=== PATIENT | female | born 1935 ===

== ENCOUNTER → 2024-08-18 | Outpatient (CLI) | payer MEDICARE, MEDICAID ==
--- NOTE | 2024-09-03 14:58 | DVHSR ---
APPROVED REPORT EXAM: Two-dimensional and M-mode echocardiogram with Doppler and color Doppler. DIMENSIONS LVDd3.7 (3.8-5.7cm)LA (2D)3.1 (1.9-4.0cm)Aortic Root3.3 (2.0-3.7cm) LVDs2.7 (2.5-4.0cm)LA (MM) (1.9-4.0cm)Aortic Cusp Exc1.2 (1.5-2.0cm) EF (%) 55.0 (55-70%)Rt. Atrium (1.9-4.0cm)Asc. Aorta cm IVSd1.2 (0.7-1.1cm)RV (D) (1.8-2.4cm) PWd1.2 (0.7-1.1cm) Mitral Valve MitralMitral Stenosis E wave0.80m/sMV Mean GR.3mmHg A wave1.33m/sMV Peak GR.9mmHg E/A ratio0.62D MVAcm2 DECEL [id number] 1/2 Mifh59dt IVRTmsDop MVA3.14cm2 Aortic Valve Aortic ValveAortic Stenosis V10.75m/Yudi Mean GR.3mmHg V21.26m/Yudi Peak GR.6mmHg LVOT Diameter1.7 (1.8-2.4cm)Doppler AVA1.35cm2 2D AVA1.37cm2 Pulmonic Valve V20.93m/s LEFT VENTRICLE The left ventricle is normal size. The left ventricle is normal in structure and function. The Ejection Fraction is within normal limits. RIGHT VENTRICLE The right ventricle is normal size. ATRIA The left atrial size is normal. The right atrium size is normal. The interatrial septum is intact with no evidence for an atrial septal defect. MITRAL VALVE The mitral valve is normal in structure. Mitral annular calcification is mild to moderate. Mitral regurgitation is trace to mild. PULMONIC VALVE The pulmonic valve is not well visualized. There is trace to mild pulmonic valvular regurgitation. TRICUSPID VALVE The tricuspid valve is grossly normal. AORTIC VALVE The aortic valve opens well. The aortic valve is mildly calcified. No aortic regurgitation is present. GREAT VESSELS The aortic root is normal size. PERICARDIAL EFFUSION There is no pericardial effusion. Other Information Technically limited study due to body habitus. Conclusion EF >55% LVH MILD AV CLACIFICATION MILD PI MILD MAC
== END | disposition home or self-care (01) ==
LOC: Rad HDHVI 09:40
PROVIDERS: ATTEND Internal Medicine Cardiovascular Disease
DX: I08.8 Other rheumatic multiple valve diseases (principal)
CPT/HCPCS: 93306